=== PATIENT | female | born 1960 | race Caucasian/White ===

== ENCOUNTER 2023-08-04 00:47 | Day surgery (SDC) | payer BC, SELFPAY ==
[2023-07-24 08:43] VITALS: BMI 23.0
--- NOTE | 2023-08-02 09:05 | SUR.PREOP ---
Patient called regarding upcoming procedure. Reviewed preop instructions, appointment times, and procedure prep.
--- NOTE | 2023-08-03 15:37 | PM.HPGS ---
History of Present Illness History of Present Illness Consent: Risks, benefits, and alternatives have been discussed and questions answered. Patient agrees to proceed with procedure. Chief complaint: hx of colon polyps Narrative: India Buckner is a 63 year old female Referred for colon cancer screening. She has a history of polyps And her father and paternal grandfather both had colon cancer Review of Systems Review of Systems: All systems reviewed & are unremarkable except as noted in HPI and below PMFSH Social History Social History Smoking packs per day: 0.5 Smoking cigarettes per day: 10.0 Years smoked: 45 Smoking pack-years: 22.50 Smoking status: Current every day smoker Tobacco type: cigarettes Alcohol intake: current Drinks per week: 14 Substance use type: does not use Living arrangements: alone Meds Home Medications and Allergies Home Medications Medication Instructions Recorded Confirmed Type acyclovir 400 mg tablet 400 mg PO TID PRN Cold Sores 07/24/23 08/04/23 History flecainide 50 mg tablet 50 mg PO BID 07/24/23 08/04/23 History fluoxetine 40 mg capsule 40 mg PO HS 07/24/23 08/04/23 History meloxicam 15 mg tablet 15 mg PO DAILY PRN Pain 07/24/23 08/04/23 History metoprolol tartrate 50 mg tablet 50 mg PO BID 07/24/23 08/04/23 History Allergies Allergy/AdvReac Type Severity Reaction Status Date / Time No Known Allergies Allergy Verified 08/04/23 09:45 Exam Const: General: alert Orientation/consciousness: patient oriented x3 Resp: Auscultation: clear to auscultation bilaterally Cardio: Rhythm: regular rhythm GI: GI Palp: Yes Soft to palpation and No Tenderness to palpation present (GI) Neuro: General: patient oriented x3 Assessment and Plan Assessment and plan (1) Colon cancer screening: Code(s): Z12.11 - Encounter for screening for malignant neoplasm of colon Status: Acute Assessment and Plan: Colonoscopy with possible biopsy or polypectomy or cautery or injection of substances.
[2023-08-04 09:48] VITALS: BP 155/66; PULSE 51; RESP 16; TEMP 36.6; O2SAT 96
[2023-08-04] MEDS: LACTATED RINGERS 1,000 ML 150 ML IV CONT (09:59)
--- NOTE | 2023-08-04 10:35 | WPDANESEPPF ---
Anes - Initial Pre Proc Eval Procedure: Operation Date: 08/04/23 10:30 Proposed Procedures p Colonoscopy - John Rivera MD Date/Time: 08/04/23 10:35 Surgeon: John Rivera MD Pre Op Diagnosis: hx of colon polyps Patient Data Age: 63 Gender: F Height: 1.6 m Weight: 60.6 kg Last Vital Signs Temp 97.8 F 08/04/23 09:48 Pulse 51 L 08/04/23 09:48 Resp 16 08/04/23 09:48 BP 155/66 H 08/04/23 09:48 Pulse Ox 96 08/04/23 09:48 O2 Del Method Room Air 08/04/23 09:48 Allergies Allergy/AdvReac Type Severity Reaction Status Date / Time No Known Allergies Allergy Verified 08/04/23 09:45 Home Medications Medication Instructions Recorded Confirmed Type acyclovir 400 mg tablet 400 mg PO TID PRN Cold Sores 07/24/23 08/04/23 History flecainide 50 mg tablet 50 mg PO BID 07/24/23 08/04/23 History fluoxetine 40 mg capsule 40 mg PO HS 07/24/23 08/04/23 History meloxicam 15 mg tablet 15 mg PO DAILY PRN Pain 07/24/23 08/04/23 History metoprolol tartrate 50 mg tablet 50 mg PO BID 07/24/23 08/04/23 History Patient hx anesthesia problems: none Family hx anesthesia problems: none Results Review: All pre-operative results and documents have been reviewed as part of the pre-operative evaluation. [facility] Social History Social History Smoking packs per day: 0.5 Smoking cigarettes per day: 10.0 Years smoked: 45 Smoking pack-years: 22.50 Smoking status: Current every day smoker Tobacco type: cigarettes Alcohol intake: current Drinks per week: 14 Substance use type: does not use Living arrangements: alone Anes - Eval Final PreProcedure Day of Procedure 08/04/23 10:35 Patient weight: normal Heart: regular rate and rhythm Lungs: clear to auscultation Airway: Mallampati scale class II Neurological: alert and oriented Last oral intake: >/= 8 hours ASA classification: III Emergent: no Anesthetic plan: proceed Anesthesia type and monitoring: general GIVS and standard monitoring Results Review: All pre-operative results and documents have been reviewed as part of the pre-operative evaluation. Informed Consent: The patient's anesthetic plan and its attendant risks and benefits were discussed with the patient/family/POA. Questions were solicited and answers provided to the satisfaction of the patient/family/POA.
[2023-08-04 11:00] VITALS: BP 105/56; PULSE 46; RESP 16; O2SAT 96
[2023-08-04 11:10] VITALS: BP 124/60; PULSE 46; RESP 14; O2SAT 100
[2023-08-04 11:20] VITALS: BP 160/69; PULSE 43; RESP 18; O2SAT 100
== END 2023-08-04 11:27 | disposition home or self-care (01) ==
PROVIDERS: PCP Internal Medicine; Visit Provider Internal Medicine Gastroenterology
PROC: 0DJD8ZZ Inspection of Lower Intestinal Tract, Via Natural or Artificial Opening Endoscopic (ICD-10-PCS; CPT 45378; principal; 2023-08-04 10:30)
DX: Z12.11 Encounter for screening for malignant neoplasm of colon (principal); F17.210 Nicotine dependence, cigarettes, uncomplicated; F10.90 Alcohol use, unspecified, uncomplicated; Z79.899 Other long term (current) drug therapy; Z80.0 Family history of malignant neoplasm of digestive organs; Z86.010 Personal history of colon polyps
CPT/HCPCS: 45378; J2704; J7120